=== PATIENT | female | born 1990 | race Caucasian/White ===

== ENCOUNTER → 2019-05-21 | Outpatient (CLI) | payer OTHER | LOC: COL.RAD 07:09 | DX: S49.91XA Unspecified injury of right shoulder and upper arm, initial encounter (principal) ==

== ENCOUNTER → 2019-10-19 | Outpatient (CLI) | payer OTHER | LOC: COL.RAD 08:07 | DX: M75.51 Bursitis of right shoulder (principal) | CPT/HCPCS: A9585; Q9967 ==

== ENCOUNTER 2019-10-31 01:51 | Emergency (ER) | payer OTHER ==
[~2019-10-31] VITALS: Ht 167.6 cm; Wt 59.5 kg
[2019-10-31 02:03] VITALS: BP 114/68; PULSE 64; TEMP 98.2
== END 2019-10-31 05:25 | disposition left against medical advice (07) ==
LOC: COL.ER 01:51
DX: K08.89 Other specified disorders of teeth and supporting structures (principal)